=== PATIENT | female | born 1985 | race Caucasian/White ===

== ENCOUNTER 2020-02-23 17:57 | Outpatient (REF) | payer OTHER, SELFPAY | END 2020-02-23 17:58 | disposition home or self-care (01) | LOC: HO.LAB 17:57 | PROVIDERS: Visit Provider Psychiatry & Neurology Neurology | DX: Z13.89 Encounter for screening for other disorder (principal) ==

== ENCOUNTER 2020-02-24 17:31 | Outpatient (REF) | payer OTHER, SELFPAY ==
[2020-02-24 18:37] LABS: Alanine Aminotransferase 7 U/L (0-31); Albumin Level 4.7 g/dL (3.5-5.0); Alkaline Phosphatase 61 U/L (39-117); Aspartate Amino Transferase 13 U/L (5-31); Bilirubin Direct < 0.2 mg/dL (0.0-0.5); Bilirubin Total 0.4 mg/dL (0.0-1.0); Total Protein 7.5 g/dL (6.5-8.0)
[2020-02-24 18:41] LABS: Valproate 44.9 mcg/mL (50.0-100.0)
[2020-02-29 00:40] LABS: Lamotrigine Lamictal 10.4 mcg/mL (4.0-18.0)
== END 2020-02-24 17:32 | disposition home or self-care (01) ==
LOC: HO.LAB 17:31
PROVIDERS: Visit Provider Psychiatry & Neurology Neurology
DX: G40.B09 Juvenile myoclonic epilepsy, not intractable, without status epilepticus (principal)
CPT/HCPCS: 80076; 80164; 80175

== ENCOUNTER 2021-07-27 10:27 | Outpatient (REF) | payer OTHER, SELFPAY ==
[2021-07-27 12:21] LABS: Valproate 86.2 mcg/mL (50.0-100.0)
[2021-07-31 16:22] LABS: Lamotrigine Lamictal 17.5 mcg/mL (4.0-18.0)
== END 2021-07-27 10:28 | disposition home or self-care (01) ==
LOC: HO.LAB 10:27
PROVIDERS: Visit Provider Psychiatry & Neurology Neurology
DX: G40.909 Epilepsy, unspecified, not intractable, without status epilepticus (principal); Z79.899 Other long term (current) drug therapy
CPT/HCPCS: 36415; 80164; 80175